=== PATIENT | female | born 1940 | race Caucasian/White ===

== ENCOUNTER 2022-05-07 10:13 | Day surgery (SDC) | payer OTHER, MEDICARE ==
[2022-05-03 14:56] VITALS: BMI 25.4
[2022-05-07 12:27] VITALS: TEMP 98
[2022-05-07 12:41] VITALS: RESP 18
[2022-05-07 12:42] VITALS: BP 120/65; PULSE 84
== END 2022-05-07 12:48 | disposition home or self-care (01) ==
LOC: FASU-ENDO 10:13
PROVIDERS: ATTEND Internal Medicine Gastroenterology
PROC: 0DBL8ZX Excision of Transverse Colon, Via Natural or Artificial Opening Endoscopic, Diagnostic (ICD-10-PCS; 2022-05-07)
PROC: 0DBM8ZX Excision of Descending Colon, Via Natural or Artificial Opening Endoscopic, Diagnostic (ICD-10-PCS; principal; 2022-05-07 11:55)
DX: Z12.11 Encounter for screening for malignant neoplasm of colon (principal); D12.6 Benign neoplasm of colon, unspecified; K57.30 Diverticulosis of large intestine without perforation or abscess without bleeding; Z86.010 Personal history of colon polyps; Z98.0 Intestinal bypass and anastomosis status
CPT/HCPCS: 88305-TC